=== PATIENT | male | born 1965 | race African-American/Black ===

== ENCOUNTER 2016-12-09 22:07 | Emergency (ER) | payer SELFPAY ==
[2016-12-09 22:56] LABS: #Basophils 0.1 thou/uL (0.0-0.2); #Eosinphils 0.1 thou/uL (0.0-0.7); #Lymphocytes 2.4 thou/uL (1.20-3.40); #Monocytes 0.5 thou/uL (0.11-0.59); #Neutrophils 4.6 thou/uL (1.40-6.50); %Basophils 0.8 % (0.0-1.0); %Eosinophils 1.2 % (0.0-10.0); %Lymphocytes 31.4 % (21.0-51.0); %Monocytes 6.8 % (0.0-10.0); Hematocrit 45.9 % (42.0-52.0); Mean Platelet Volume 8.4 fL (7.4-10.4); Red Blood Cell (RBC) Count 4.81 mill/uL (4.70-6.10); White Blood Cell (WBC) Count 7.8 thou/uL (4.8-10.8)
[2016-12-09 23:17] LABS: ALT (SGPT) 30 U/L (8-55); AST (SGOT) 38 U/L (5-34); Alkaline Phosphatase 74 U/L (40-150); Anion Gap 19 mmol/L (10-20); BUN (Urea Nitrogen) 11 mg/dL (8.9-20.6); Bilirubin, Total 0.4 mg/dL (0.2-1.2); CK (CPK) 210 U/L (30-200); Calc. Creatinine Clearance 0 mL/min (70-130); Calcium 9.7 mg/dL (7.8-10.44); Carbon Dioxide 23 mmol/L (22-29); Chloride 103 mmol/L (98-107); Estimated GFR-MDRD Greater than 90; Globulin 3.8 g/dL (2.4-3.5); Magnesium 2.5 mg/dL (1.6-2.6); Protein, Total 8.1 g/dL (6.0-8.3)
--- NOTE | 2016-12-09 23:19 | RAD ---
SEMIUPRIGHT PORTABLE CHEST ONE VIEW: 12/09/16 HISTORY: 51-year-old male with chest pain for three days. COMPARISON: 09/23/12 Monitor leads overlie the chest. No confluent pneumonia, overt edema or pleural effusion. IMPRESSION: No acute intrathoracic disease. POS: [facility]
[2016-12-09 23:22] LABS: Troponin I Less than 0.010 ng/mL (< 0.028)
[2016-12-10 03:46] LABS: Troponin I Less than 0.010 ng/mL (< 0.028)
[2016-12-10 06:20] LABS: Bilirubin Negative (Negative); Blood, Urine Negative (Negative); Glucose, Urine (Dipstick) Negative (Negative); Ketone, Urine Negative (Negative); Nitrite Negative (Negative); Protein, Urine (Dipstick) Negative (Neg-Trace); Urobilinogen 0.2 mg/dL (0.2-1.0)
== END 2016-12-10 05:52 | disposition home or self-care (01) ==
LOC: ERS 22:07
DX: R07.89 Other chest pain (principal)
CPT/HCPCS: 36415; 71010; 80053; 80307; 81003; 82553; 83735; 83880; 84484; 85025; 93005; 96360

== ENCOUNTER 2018-05-17 08:28 | Emergency (ER) | payer SELFPAY ==
[2018-05-17] MEDS ORDERED: HYDROcodone/Acetaminophen 5/325 mg Tablet ONE (08:56)
--- NOTE | 2018-05-17 09:18 | RAD ---
RIGHT RIBS FOUR VIEWS: INDICATIONS: Right rib pain. FINDINGS: No evidence of right rib fracture. No other right rib lesion. IMPRESSION: Unremarkable examination. POS: [facility]
== END 2018-05-17 09:25 | disposition home or self-care (01) ==
LOC: ERS 08:28
DX: S20.211A Contusion of right front wall of thorax, initial encounter (principal); F17.210 Nicotine dependence, cigarettes, uncomplicated; X58.XXXA Exposure to other specified factors, initial encounter; Y93.61 Activity, american tackle football
CPT/HCPCS: 99283

== ENCOUNTER 2020-02-06 15:40 | Emergency (ER) | payer SELFPAY ==
[2020-02-06] MEDS ORDERED: Acetaminophen 500 MG TAB ONE ×2 (15:54)
--- NOTE | 2020-02-06 16:40 | RAD ---
CHEST 1 VIEW: Date: 02/06/2020 HISTORY: Chest pain. COMPARISON: Rib radiograph 05/17/2018. FINDINGS: Patient is rotated to the right. This rotation gives a nodular appearance to the pulmonary vasculatur e along the right hilum, although likely artifactual. No confluent air space consolidation, pneumotho rax, or effusion. No acute osseous abnormality. IMPRESSION: No acute intrathoracic abnormality. Likely artifactual prominence of the right infrahilar soft tissue s due to rightward patient rotation. POS: [facility]
== END 2020-02-06 16:32 | disposition home or self-care (01) ==
LOC: ERS 15:40
DX: S29.9XXA Unspecified injury of thorax, initial encounter (principal); F17.200 Nicotine dependence, unspecified, uncomplicated; Y04.0XXA Assault by unarmed brawl or fight, initial encounter
CPT/HCPCS: 71045

== ENCOUNTER 2021-07-07 19:35 | Emergency (ER) | payer BC, SELFPAY | END 2021-07-07 20:33 | LOC: ERS 19:35 | DX: F10.129 Alcohol abuse with intoxication, unspecified (principal); S21.139A Puncture wound without foreign body of unspecified front wall of thorax without penetration into thoracic cavity, initial encounter; S61.230A Puncture wound without foreign body of right index finger without damage to nail, initial encounter; F17.200 Nicotine dependence, unspecified, uncomplicated; Z02.89 Encounter for other administrative examinations; X58.XXXA Exposure to other specified factors, initial encounter | CPT/HCPCS: 93005 ==